=== PATIENT | male | born 1965 | race Caucasian/White ===

== ENCOUNTER 2019-06-06 18:01 | Emergency (ER) | payer SELFPAY ==
[~2019-06-06] VITALS: Ht 172.7 cm; Wt 111.1 kg
[2019-06-06] MEDS ORDERED: DEXAMETHASONE 4 MG TABLET PO ONE (18:45)
[2019-06-06] MEDS ORDERED: KETOROLAC 30 MG/ML VIAL. IM ONE (19:00)
--- NOTE | 2019-06-06 19:18 | PHYS DOC ---
Past Medical History Past Medical History: Arthritis, Other Additional Past Medical Histor: BPH, ADHD Past Surgical History: Other Additional Past Surgical Histo: BACK SURGERY X2, LEFT KNEE SURGERY, CYST REMOVAL ON RIGHT WRIST Smoking: Quit Greater Than 1 Year Alcohol Use: Occasionally Drug Use: Marijuana Social History Narrative: CBD OIL Adult General Chief Complaint Chief Complaint: LOWER EXTREMITY SWELLING HPI HPI Patient is a 53-year-old male who presents with left knee swelling. On Monday h e had got down to his knee for a few minutes at work. On Monday morning he woke up with swelling in his left knee and difficulty moving it. He continued to go to work and at the end of his workday did could no longer bear weight on his left leg without a cane. It was swollen with sharp, stabbing pain. The pain is located at the back of his knee and around to the front under his patella. Otherwise denies radiation. The pain is sharp with movement and is a throbbing pressure at rest. He rates it a 9/10. He tried icing it and Advil with no improvement of symptoms. He follows with an orthopedic surgeon who previously repaired his left meniscus and 2010. He has been told that he needs a left knee replacement and has gotten steroid shots in his knee before. In the past he has had swelling in his left knee that resolved with ice. Review of Systems Review of Systems Constitutional: Denies fever or chills Eyes: Denies redness or eye pain HENT: Denies nasal congestion or sore throat Respiratory: Denies cough or shortness of breath Cardiovascular: Denies chest pain or palpitations GI: Denies abdominal pain, nausea, or vomiting : Denies dysuria or hematuria Musculoskeletal: Denies back pain, reports left knee pain Integument: Denies rash or skin lesions Neurologic: Denies headache, focal weakness or sensory changes Complete systems were reviewed and found to be within normal limits, except as documented in this note. Current Medications Current Medications Current Medications Medications (Trade) Dose Ordered Sig/Bernardino Start Time Stop Time Status Last Admin Dose Admin Acetaminophen/ Hydrocodone Bitart (Lortab 5/325) 1 tab 1X ONCE 06/06/19 20:00 06/06/19 20:03 DC 06/06/19 20:09 1 TAB Dexamethasone (Decadron) 10 mg 1X ONCE 06/06/19 18:45 06/06/19 19:00 DC 06/06/19 19:09 10 MG Ketorolac Tromethamine (Toradol 30mg Vial) 30 mg 1X ONCE 06/06/19 19:00 06/06/19 19:01 DC 06/06/19 19:09 30 MG Allergies Allergies Allergies Coded Allergies Type Severity Reaction Last Updated Verified No Known Drug Allergies 06/06/19 No Physical Exam Physical Exam Constitutional: Well developed, well nourished, no acute distress, non-toxic appearance HENT: Normocephalic, atraumatic, oropharynx moist Eyes: Conjunctiva normal, no discharge Neck: Normal range of motion, no tenderness, supple Cardiovascular: Heart rate normal, regular rhythm Lungs & Thorax: Bilateral breath sounds clear to auscultation, no wheezing Skin: Warm, dry, no erythema, no rash Extremities: No tenderness, ROM intact, swelling around left knee, no joint instability, tender to palpation at joint line, reduced ROM in flexion and extension, no erythema, or warmth. Neurologic: Alert and oriented X 3, normal motor function, normal sensory function, no focal deficits noted Psychologic: Affect normal, judgement normal Current Patient Data Vital Signs Vital Signs Date Time Temp Pulse Resp B/P (MAP) Pulse Ox O2 Delivery O2 Flow Rate FiO2 06/06/19 20:09 Room Air 06/06/19 19:44 67 16 126/66 (86) 98 06/06/19 18:20 97.2 97.2 EKG EKG [] Radiology/Procedures Radiology/Procedures []PROCEDURE: KNEE LEFT 3V Left knee 3 views. HISTORY: Pain and swelling 3 views were taken of the left knee. There is a prominent joint effusion. There is osteoarthritis. There is narrowing of the joint space in the medial joint compartment. There is no acute fracture. IMPRESSION: 1. Osteoarthritis left knee. 2. Prominent joint effusion. Electronically signed by: Scooter Andre MD (06/06/2019 7:28 PM) [facility] Course & Med Decision Making Course & Med Decision Making Pertinent Imaging studies reviewed. (See chart for details) Mr. Awad is a 53-year-old male with a history of osteoarthritis in his left knee who presents with left knee swelling. On Monday he got down on his knees at work, and woke up Monday morning with swelling in his left knee. He is having swelling and sharp stabbing pain. He denies fever, warmth, or erythema of left knee. On physical exam his left knee is mildly edematous with no erythema or warmth. He has reduced range of motion in flexion and extension. He has tenderness along the joint line with no joint instability. X-ray of his knee showed osteoarthritis of the left knee with a prominent joint effusion. He has a left knee effusion due to his osteoarthritis. We will treat the inflammation, edema, and pain with anti-inflammatories. He is instructed to use RICE until the inflammation has resolved and he is given crutches and an Gray bandage. He shoul d follow-up with his orthopedic surgeon. Patient stable for discharge with outpatient follow-up with PCP. Discussed findings and plan with patient, who acknowledges understanding and agreement. Dragon Disclaimer Dragon Disclaimer This electronic medical record was generated, in whole or in part, using a voice recognition dictation system. Splinting Splinting : Location: Left knee Pre-Made Type: GRAY bandage Pre-Proc Neuro Vasc Exam: normal Post-Proc Neuro Vasc Exam: normal, unchanged from pre-exam Departure Departure Impression: Primary Impression: Knee effusion, left Additional Impression: Arthritis Disposition: 01 HOME, SELF-CARE Condition: STABLE Referrals: UNKNOWN PCP NAME (PCP) SHAE AGARWAL MD Patient Instructions: Crutch Use, [id number], Knee Effusion, [id number], Knee Wraps (Elastic Bandage) and RICE Scripts Hydrocodone Bit/Acetaminophen (HYDROCODONE-APAP 5-325 ) 1 Tab Tablet 0.5-1 TAB PO PRN Q6-8HRS PRN for PAIN, #6 TAB 0 Refills Prov: GREG MAR DO 06/06/19 Prednisone (PREDNISONE) 20 Mg Tablet 2 TAB PO DAILY, #8 TAB Start this medication tomorrow, Monday06/07/19 Prov: GREG MAR DO 06/06/19 Naproxen (NAPROXEN) 375 Mg Tablet 1 TAB PO TID PRN for PAIN, #20 TAB Prov: GREG MAR DO 06/06/19 Problem Qualifiers GREG MAR DO Jun 06, 2019 19:18
--- NOTE | 2019-06-06 19:31 | RAD ---
Left knee 3 views. HISTORY: Pain and swelling 3 views were taken of the left knee. There is a prominent joint effusion. There is osteoarthritis. There is narrowing of the joint space in the medial joint compartment. There is no acute fracture. IMPRESSION: 1. Osteoarthritis left knee. 2. Prominent joint effusion. Electronically signed by: Scooter Andre MD (06/06/2019 7:28 PM) [facility]
[2019-06-06 19:44] VITALS: BP 126/66
[2019-06-06] MEDS ORDERED: NAPR-695 PO (19:44)
[2019-06-06] MEDS ORDERED: PRED20TA PO (19:44)
[2019-06-06] MEDS ORDERED: HYDROcodone/APAP 5/325MG 1 TAB TABLET PO ONE (20:00)
[2019-06-06] MEDS ORDERED: HYDR-2761 PO (20:02)
== END 2019-06-06 20:08 | disposition home or self-care (01) ==
LOC: ER 18:01
DX: M25.462 Effusion, left knee (principal); M17.12 Unilateral primary osteoarthritis, left knee; Z87.891 Personal history of nicotine dependence
CPT/HCPCS: 73562; 96372; 99284; J1885; J8540

== ENCOUNTER 2019-08-10 09:05 | Emergency (ER) | payer SELFPAY ==
[~2019-08-10] VITALS: Ht 172.7 cm; Wt 99.8 kg
[~2019-08-10 09:05] MED LIST: HYDR-2761 PO; NAPR-695 PO; PRED20TA PO
[2019-08-10] MEDS ORDERED: ORPHENADRINE CITRATE 60 MG/2 ML VIAL. IM ONE (10:00)
[2019-08-10] MEDS ORDERED: DEXAMETHASONE SOD PHOS 20 MG/5 ML VIAL. IM ONE (10:00)
[2019-08-10] MEDS ORDERED: NAPR-514 PO (10:07)
--- NOTE | 2019-08-10 10:07 | PHYS DOC ---
Past Medical History Past Medical History: Arthritis, Other Additional Past Medical Histor: BPH, ADHD Past Surgical History: Other Additional Past Surgical Histo: BACK SURGERY X2, LEFT KNEE SURGERY, CYST REMOVAL ON RIGHT WRIST Alcohol Use: Occasionally Drug Use: Marijuana Adult General Chief Complaint Chief Complaint: BACK PAIN OR INJURY HPI HPI Patient is a 53 year old male who presents to the ER with complaints of right low back pain for the last 6 days. He denies any specific injury, states the only thing he can remember doing is lifting a heavy bucket from his truck. He denies any numbness, tingling, or weakness of extremities. He denies any saddle anesthesia, or loss of bowel/bladder control. Pt denies any dysuria or increased urinary frequency. He reports a hx of chronic low back paint that he takes flexeril at home for. The patient states the flexeril is not helping, he currently rates his pain a 9/10 on the pain scale, he denies any alleviating factors, the pain increases with movement. Review of Systems Review of Systems Constitutional: Denies fever or chills [] Eyes: Denies change in visual acuity, redness, or eye pain [] GI: Denies abdominal pain, nausea, vomiting, or saddle anesthesia : Denies dysuria, incontinence, or hematuria [] Musculoskeletal: Denies joint pain; see HPI Integument: Denies rash or skin lesions [] Neurologic: Denies headache, focal weakness or sensory changes [] Complete systems were reviewed and found to be within normal limits, except as documented in this note. Current Medications Current Medications Current Medications Medications (Trade) Dose Ordered Sig/[facility] Start Time Stop Time Status Last Admin Dose Admin Dexamethasone Sodium Phosphate (Decadron) 10 mg 1X ONCE 08/10/19 10:00 08/10/19 10:01 UNV Orphenadrine Citrate (Norflex) 60 mg 1X ONCE 08/10/19 10:00 08/10/19 10:01 UNV Allergies Allergies Allergies Coded Allergies Type Severity Reaction Last Updated Verified No Known Drug Allergies 06/06/19 No Physical Exam Physical Exam Constitutional: Well developed, well nourished, no acute distress, non-toxic appearance. [] HENT: Normocephalic, atraumatic, bilateral external ears normal, nose normal. [] Eyes: PERRLA, EOMI, conjunctiva normal, no discharge. [] Neck: Normal range of motion, no stridor. [] Cardiovascular:Heart rate regular rhythm Lungs & Thorax: Bilateral breath sounds clear to auscultation [] Skin: Warm, dry, no erythema, no rash. [] Back: No CVA tenderness; right lumbar paraspinal TTP, pt reports increased pain shooting to r hip with straight leg lift Extremities: No tenderness, no cyanosis, no clubbing, ROM intact, no edema. [] Neurologic: Alert and oriented X 3, normal motor function, normal sensory function, no focal deficits noted. [] Psychologic: Affect normal, judgement normal, mood normal. [] Current Patient Data Vital Signs Vital Signs Date Time Temp Pulse Resp B/P (MAP) Pulse Ox O2 Delivery O2 Flow Rate FiO2 08/10/19 09:44 98.3 80 18 160/90 (113) 96 Room Air 98.3 EKG EKG [] Radiology/Procedures Radiology/Procedures [] Course & Med Decision Making Course & Med Decision Making Pertinent Labs and Imaging studies reviewed. (See chart for details) [] Dragon Disclaimer Dragon Disclaimer This electronic medical record was generated, in whole or in part, using a voice recognition dictation system. Departure Departure Impression: Primary Impression: Strain of lumbar paraspinous muscle Disposition: HOME, SELF-CARE Condition: STABLE Referrals: UNKNOWN PCP NAME (PCP) Patient Instructions: Low Back Strain with [facility] Additional Instructions: Fill the prescription and take as directed. You were given IM injections of norflex (muscle relaxer) and decadron (steroid) in the ER. Take your flexeril as needed at home, wait until this evening to resume as the injection given in the ER will last all day. Follow up with your PCP next week, return to the ER if symptoms worsen. Scripts Naproxen (NAPROXEN) 500 Mg Tablet 1 TAB PO BID for 10 Days, #20 TAB 0 Refills Prov: CIRILO KAUR APRN 08/10/19 Problem Qualifiers Primary Impression: Strain of lumbar paraspinous muscle Encounter type: initial encounter Qualified Codes: S39.012A - Strain of muscle, fascia and tendon of lower back, initial encounter CIRILO KAUR APRN Aug 10, 2019 10:07
[2019-08-10 10:35] VITALS: BP 152/82
== END 2019-08-10 10:51 | disposition home or self-care (01) ==
LOC: ER 09:05
DX: S39.012A Strain of muscle, fascia and tendon of lower back, initial encounter (principal); G89.29 Other chronic pain; X50.0XXA Overexertion from strenuous movement or load, initial encounter; Y93.89 Activity, other specified; Y92.89 Other specified places as the place of occurrence of the external cause; Y99.8 Other external cause status
CPT/HCPCS: 96372; 99284; J1100; J2360